=== PATIENT | female | born 1965 | race American Indian/Alaskan Native ===

== ENCOUNTER 2017-05-10 07:18 | Outpatient (CLI) | payer OTHER ==
[2017-05-10] MEDS ORDERED: PROVENTIL IH ONE (07:48)
== END 2017-05-10 07:19 | disposition home or self-care (01) ==
LOC: PF 07:18
PROVIDERS: ATTEND Internal Medicine
DX: E11.9 Type 2 diabetes mellitus without complications (principal); J45.909 Unspecified asthma, uncomplicated; M17.0 Bilateral primary osteoarthritis of knee; M25.859 Other specified joint disorders, unspecified hip
CPT/HCPCS: 94060; 94640

== ENCOUNTER 2018-04-02 22:46 | Emergency (ER) | payer SELFPAY ==
[2018-04-03] MEDS ORDERED: CATAPRES ONE (04:15)
[2018-04-03] MEDS ORDERED: CATAPRES PO ONE (04:19)
[2018-04-03] MEDS ORDERED: TYLENOL PO ONE (04:20)
--- NOTE | 2018-04-03 04:20 | Emergency Department Report ---
Minor Respiratory - HPI Chief Complaint: Upper Respiratory Infection Stated Complaint: COUGHING , KNEE PAIN Time Seen by Provider: 04/03/18 04:10 Duration: 4 Days (cough and) Pain Location: Other (bilateral knee pain which is chronic and here for steroid injection) Severity: severe (9/10 pain to knees from arthritis.) Minor Respiratory: Yes Rhinorrhea (nasal congestion and facial pressure), Yes Sore Throat (all of the cough), Yes Able to Tolerate Fluids, Yes Cough (dry cough), No Ear Pain, No Sick Contacts, No Hemoptysis, No Chest Pain, No Shortness of Breath, No Fever Other History: Patient reports that she has been coughing for 4 days with sore throat. Reports cough is dry. Denies any chest pain or shortness of breath. Denies any nausea or vomiting. Denies any headache or neck pain. Reports nasal congestion and runny nose and facial pressure. She states that she's been taking [id number]-edq-[id number] medication for cough but it's not helping. She is also requesting a steroid injection in her right knee that she usually gets at [facility] for chronic arthritis and chronic knee pain which is 9 out of 10 today and achy. Worse with movement. No numbness or tingling.` Patient also with elevated blood pressure in triage to 25/111 and asymptomatic. Blood pressure was rechecked and it is 186/91. Patient usually takes lisinopril and she says she didn't take her medication today. ED Review of Systems ROS: Stated complaint: COUGHING , KNEE PAIN Other details as noted in HPI Constitutional: denies: chills, fever Eyes: denies: eye pain, eye discharge, vision change ENT: throat pain, congestion. denies: ear pain, dental pain, hearing loss, epistaxis Respiratory: denies: cough, orthopnea, shortness of breath, SOB with exertion, SOB at rest, stridor, wheezing Cardiovascular: denies: chest pain, palpitations, edema, syncope Gastrointestinal: denies: abdominal pain, nausea, vomiting, diarrhea, constipation Musculoskeletal: arthralgia. denies: back pain, joint swelling, myalgia Skin: denies: rash, lesions Neurological: denies: headache, weakness, numbness, paresthesias, abnormal gait , vertigo ED Past Medical Hx - Past Medical History Previous Medical History?: Yes Hx Hypertension: Yes - Surgical History Past Surgical History?: Yes Additional Surgical History: tubal ligation - Family History Family history: hypertension - Social History Smoking Status: Never Smoker Substance Use Type: Alcohol - Medications Home Medications: Home Medications Medication Instructions Recorded Confirmed Last Taken Type Lisinopril [Zestril TAB] 20 mg PO QDAY #90 tablet 01/04/14 09/27/15 Unknown Rx Lisinopril [Zestril TAB] 20 mg PO QDAY #20 tablet 09/27/15 Unknown Rx Methocarbamol [Robaxin TAB] 1,500 mg PO TID PRN #30 tab 09/27/15 Unknown Rx Azithromycin [Zithromax Z-PALOMO] 250 mg PO DAILY 5 Days #1 pkg 04/03/18 Unknown Rx Cetirizine HCl [ZyrTEC] 10 mg PO QDAY 14 Days #14 capsule 04/03/18 Unknown Rx Fluticasone [Flonase] 1 spray NS QDAY 14 Days #1 bottle 04/03/18 Unknown Rx guaiFENesin/CODEINE [Robitussin AC] 10 ml PO QAM PRN #50 oral.liqd 04/03/18 Unknown Rx traMADol [Ultram] 50 mg PO Q6HR PRN #12 tablet 04/03/18 Unknown Rx Minor Respiratory Exam - Exam General: Vital signs noted. No distress. Alert and acting appropriately. This is a 53-year-old female patient in no acute distress. She is nontoxic in appearance HEENT: Yes Moist Mucous Membranes (uvula midline and oral airways patent.), Yes Rhinorrhea (positive nasal congestion, erythema and clear drainage), Yes Frontal Tenderness, Yes Maxillary Tenderness, No Pharyngeal Erythema, No Pharyngeal Exudates, No Conjuctival Injection Ear: Neither TM Bulge (bilateral TM congested), Neither TM Erythema, Neither EAC Pain, Neither EAC Discharge Neck: Yes Supple (full range of motion and no C-spine tenderness), No Adenopathy (no bruit.) Lungs: Yes Good Air Exchange (CTAB and normal work of breathing), Yes Cough ( dry cough), No Wheezes, No Ronchi, No Stridor, No Labored Respirations, No Retractions, No Use of Accessory Muscles, No Other Abnormal Lung Sounds Heart: Yes Regular (S1, S2. Regular rate and rhythm), No Murmur Abdomen: Yes Normal Bowel Sounds (in all quadrants. No bruit.), No Tenderness ( NTTP in all quadrants), No Peritoneal Signs Skin: No Rash, No Edema Neurologic: Alert and oriented 3, speech is clear, no facial drooping. Normal gait and no motor or sensory deficit. Musculoskeletal: Extremity: The clubbing, cyanosis or edema. +2 pulses to all extremities and no neurovascular compromise MSK: Range of motion to all extremities, no joint effusion or abnormality. No swelling or redness to joint. Patient able to fully extend and flex her knees. No abrasion, laceration and contusion noted to extremities ED Course Vital Signs 04/02/18 04/03/18 23:08 04:18 Temperature 98.3 F Pulse Rate 91 H 81 Respiratory 20 Rate Blood Pressure 225/111 Blood Pressure 186/91 [Left] O2 Sat by Pulse 98 Oximetry - Reevaluation(s) Reevaluation #1: 04/03/18 04:36 Start on DuoNeb 1 nebulizer, Deltasone 60 mg milligram by mouth due to continuous coughing. She is also to receive clonidine 0.2 mg in emergency room for elevated blood pressure and will bruit if out. Reevaluation #2: 04/03/18 06:51 Patient blood pressure is better. She feels better ED Medical Decision Making - Radiology Data Radiology results: report reviewed X-ray chest was dictated by radiologist please see results below. Report reviewed by myself. Patient: ROSARIO QUINTANA MR#: [id number] : 1965 Acct:[id number] Age/Sex: 53 / F ADM Date: 04/02/18 Loc: ED Attending Dr: Ordering Physician: OSMANI TALBOT Date of Service: 04/03/18 Procedure(s): XR chest routine 2V Accession Number(s): [id number] cc: OSMANI TALBOT Fluoro Time In Minutes: FINAL REPORT EXAM: XR CHEST ROUTINE 2V HISTORY: cough ?4 days TECHNIQUE: PA and lateral chest radiographs PRIORS: None. FINDINGS: No mediastinal shift. Cardiac silhouette is not enlarged. No pneumothorax, effusion, or focal pulmonary opacity. No acute skeletal finding. IMPRESSION: No focal pulmonary opacity. Transcribed By: MB Dictated By: LESLY PATE MD Electronically Authenticated By: LESLY PATE MD Signed Date/Time: 04/03/18512 DD/ 2 TD/TT: 04/03/18512 - Medical Decision Making ED course This is a 53-year-old female here reporting that she's been having cough in and facial pressure over a 4 day. Patient said she has bad sinuses. She states that she did take an typm-ikq-tjihsle cough medicine is not working. She has a history of elevated blood pressure and her blood pressure is elevated in triage at 225/111 it was retaken shortly after and 186/91. Patient is asymptomatic with no neurological deficits, no chest pain or shortness of breath. No neck bowel or back pain. No abdominal pain. Patient is on lisinopril 20 mg daily but she says she didn't take her blood pressure medication today. I examined patient and she is in stable condition. Her blood pressure was elevated and she was given clonidine which brought her blood pressure down to 164/83. Patient physical findings for sinusitis, cough. Patient had chest x- ray done and dictated by radiologist and reviewed by myself and chest x-ray revealed no acute processes. Please see radiology report for details. She was given nebulizer treatments, steroid. Cough has decreased. Patient was updated on her x-ray findings and she voiced understanding. A/P 1: Acute sinusitis-patient given Deltasone 60 mg by mouth and DuoNeb 1 nebulizer treatment in emergency room and cough and has decreased. 2: cough and congestion - patient will be discharged home on Zyrtec and Flonase and instructed on saline nasal wash. 3: Elevated blood pressure with history of high blood pressure-she did not take her lisinopril today she was given clonidine 0.2 mg emergency room and her blood pressure is better. She says she'll take her medication when she goes home 4: Chronic knee pain-patient will be discharged home in [facility] and referred to orthopedics. Prescription for Z-Palomo, Ultram ,cough medicine with codeine cough syrup, Flonase and Zyrtec. She is educated on diagnosis, medication,and need to follow-up.she does not have access to primary care so I instructed her she can follow-up with outside [facility] where she has to pay a sliding scale fee. Patient discharged home in stable condition and pain is controlled. Vital signs are stable and is afebrile. She says she is feeling better. Patient to follow-up with primary care physician in 2-3 days and also to follow up with orthopedics for chronic knee pain . I also instructed him that if her symptoms worsen to return to the emergency room [facility]. She voiced understanding and discharge instruction and discharged home from ED in stable condition - Differential Diagnosis PNA, bronchitis, URI with cough and congestion, sinusitis Critical care attestation.: If time is entered above; I have spent that time in minutes in the direct care of this critically ill patient, excluding procedure time. ED Disposition Clinical Impression: Cough in adult patient, Arthralgia of both knees Sinusitis, acute Qualifiers: Sinusitis location: unspecified location Recurrence: not specified as recurrent Qualified Code(s): J01.90 - Acute sinusitis, unspecified Disposition: DC- TO HOME OR SELFCARE Is pt being admited?: No Does the pt Need Aspirin: No Condition: Stable Instructions: Arthralgia (ED), Sinusitis (ED), Acute Cough (ED) Additional Instructions: Please increase her fluid intake Flush nostrils with saline nasal spray take antibiotic as prescribed F/U with primary care physician as instructed refer to Ortho Refer to [facility] Prescriptions: Azithromycin [Zithromax Z-PALOMO] 250 mg PO DAILY 5 Days #1 pkg Cetirizine HCl [ZyrTEC] 10 mg PO QDAY 14 Days #14 capsule Fluticasone [Flonase] 1 spray NS QDAY 14 Days #1 bottle guaiFENesin/CODEINE [Robitussin AC] 10 ml PO QAM PRN #50 oral.liqd PRN Reason: Cough traMADol [Ultram] 50 mg PO Q6HR PRN #12 tablet PRN Reason: Pain Referrals: [facility] [Outside] - 2-3 Days SERGEY TERRELL MD [Staff Physician] - 2-3 Days Forms: Work/School Release Form(ED)
[2018-04-03] MEDS ORDERED: DUONEB *Not for PRN Use IH ONE (04:24)
[2018-04-03] MEDS ORDERED: DELTASONE PO ONE (04:25)
--- NOTE | 2018-04-03 05:17 | XRay Report ---
FINAL REPORT EXAM: XR CHEST ROUTINE 2V HISTORY: cough ?4 days TECHNIQUE: PA and lateral chest radiographs PRIORS: None. FINDINGS: No mediastinal shift. Cardiac silhouette is not enlarged. No pneumothorax, effusion, or focal pulmonary opacity. No acute skeletal finding. IMPRESSION: No focal pulmonary opacity.
[2018-04-03 06:40] VITALS: BP 164/83
== END 2018-04-03 07:20 | disposition home or self-care (01) ==
LOC: ED 22:46
DX: J01.90 Acute sinusitis, unspecified (principal); M25.562 Pain in left knee; M25.561 Pain in right knee; I10 Essential (primary) hypertension; Z98.51 Tubal ligation status; Z88.1 Allergy status to other antibiotic agents; Z88.8 Allergy status to other drugs, medicaments and biological substances; Z88.6 Allergy status to analgesic agent; Z91.041 Radiographic dye allergy status
CPT/HCPCS: 71046; 94640; 99283; J7512